=== PATIENT | female | born 1940 | race Two or more races ===

== ENCOUNTER 2019-06-22 11:56 | Inpatient (IN) | payer OTHER ==
[~2019-06-22] VITALS: Ht 147.3 cm; Wt 59.9 kg
[~2019-06-22 11:56] MED LIST: ASA325 M1 PO; AVALIDE 300-121 EACH; BENICAR5 MG; GLUCOPHAGE XR500 MG PO; SIMVASTATIN40 MG; SYNTHROID100 MCG PO
[2019-07-05] MEDS ORDERED: ZOCOR20 MG PO (09:21)
== END 2019-07-12 15:34 | disposition home or self-care (01) | DRG 330 ==
LOC: SURH 07-05 07:38 → O/R 07-05 07:38 → SURH 07-05 10:45 → SURG 07-05 14:32 → SURH 07-05 15:48
PROVIDERS: ADMIT Colon & Rectal Surgery; ATTEND Colon & Rectal Surgery
PROC: 07TC4ZZ Resection of Pelvis Lymphatic, Percutaneous Endoscopic Approach (ICD-10-PCS; 2019-07-05)
PROC: 0DBU4ZZ Excision of Omentum, Percutaneous Endoscopic Approach (ICD-10-PCS; 2019-07-05)
PROC: 0DJD8ZZ Inspection of Lower Intestinal Tract, Via Natural or Artificial Opening Endoscopic (ICD-10-PCS; 2019-07-05)
PROC: 0DTM4ZZ Resection of Descending Colon, Percutaneous Endoscopic Approach (ICD-10-PCS; principal; 2019-07-05 10:45)
PROC: BB24YZZ Computerized Tomography (CT Scan) of Bilateral Lungs using Other Contrast (ICD-10-PCS; 2019-07-10)
PROC: 4A033R1 Measurement of Arterial Saturation, Peripheral, Percutaneous Approach (ICD-10-PCS; 2019-07-11)
DX: C18.6 Malignant neoplasm of descending colon (principal); C77.2 Secondary and unspecified malignant neoplasm of intra-abdominal lymph nodes; J95.89 Other postprocedural complications and disorders of respiratory system, not elsewhere classified; J98.11 Atelectasis; J90 Pleural effusion, not elsewhere classified; R50.82 Postprocedural fever; D64.9 Anemia, unspecified; J84.10 Pulmonary fibrosis, unspecified; K66.0 Peritoneal adhesions (postprocedural) (postinfection); I11.9 Hypertensive heart disease without heart failure; E03.8 Other specified hypothyroidism; E11.9 Type 2 diabetes mellitus without complications; Z79.4 Long term (current) use of insulin; Z03.818 Encounter for observation for suspected exposure to other biological agents ruled out

== ENCOUNTER 2019-07-29 07:58 | Outpatient (CLI) | payer OTHER ==
[~2019-07-29 07:58] MED LIST changes: +ZOCOR20 MG PO
== END 2019-07-29 08:16 | disposition home or self-care (01) ==
LOC: RAD 07:58 → LAB 07:58
PROVIDERS: ATTEND Colon & Rectal Surgery
DX: C18.6 Malignant neoplasm of descending colon (principal); D12.4 Benign neoplasm of descending colon; Z85.038 Personal history of other malignant neoplasm of large intestine; K92.1 Melena

== ENCOUNTER 2019-07-31 07:04 | Outpatient (CLI) | payer OTHER | END 2019-07-31 07:08 | disposition home or self-care (01) | LOC: EKG 07:04 | PROVIDERS: ATTEND Colon & Rectal Surgery | DX: I10 Essential (primary) hypertension (principal) ==

== ENCOUNTER 2019-08-02 05:28 | Day surgery (SDC) | payer OTHER | END 2019-08-02 11:30 | disposition home or self-care (01) | LOC: CIR.AMB 05:28 | PROVIDERS: ATTEND Colon & Rectal Surgery | DX: C18.6 Malignant neoplasm of descending colon (principal) | CPT/HCPCS: 36561; C1751 ==

== ENCOUNTER 2020-07-19 06:22 | Day surgery (SDC) | payer OTHER | END 2020-07-19 09:50 | disposition home or self-care (01) | LOC: AMB-ENDOS 06:22 → EDBD 14:45 → AMB-ENDOS 14:45 | PROVIDERS: ATTEND Colon & Rectal Surgery | DX: D12.3 Benign neoplasm of transverse colon (principal); K64.0 First degree hemorrhoids; Z20.822 Contact with and (suspected) exposure to COVID-19 ==